=== PATIENT | male | born 1995 | race Caucasian/White ===

== ENCOUNTER 2019-08-09 18:41 | Emergency (ER) | payer OTHER ==
[~2019-08-09] VITALS: Ht 172.7 cm; Wt 74.8 kg
--- NOTE | 2019-08-09 18:50 | NUR ---
patient came in to the er due to neeedle stick on the left ring finger after drawing blood. On room air, breathing evenly and unlabored. Kept comfortable, will continue to monitor accordingly.
--- NOTE | 2019-08-09 19:51 | NUR ---
Patient discharged to home in stable condition. Written and verbal after care instructions given. Patient verbalizes understanding of instruction.
[2019-08-09 19:52] VITALS: BP 129/79
[2019-08-10 12:07] LABS: HIV SCRN 4G wRFX Non Reactive (Non Reactive)
== END 2019-08-09 19:52 | disposition home or self-care (01) ==
LOC: ER 18:45
DX: S61.231A Puncture wound without foreign body of left index finger without damage to nail, initial encounter (principal); W46.0XXA Contact with hypodermic needle, initial encounter; Y93.89 Activity, other specified; Y92.89 Other specified places as the place of occurrence of the external cause; Y99.8 Other external cause status
CPT/HCPCS: 36415; 86706; 86803

== ENCOUNTER 2019-10-23 11:44 | Outpatient (CLI) | payer BC | END 2019-10-23 23:59 | disposition home or self-care (01) | LOC: LAB 11:44 | DX: Z02.1 Encounter for pre-employment examination (principal) | CPT/HCPCS: 36415; 86317; 86803; 87806 ==

== ENCOUNTER 2020-02-16 20:12 | Emergency (ER) | payer BC, OTHER ==
[~2020-02-16] VITALS: Ht 175.3 cm; Wt 74.8 kg
[2020-02-16 20:14] VITALS: BP 132/64
== END 2020-02-16 20:21 | disposition home or self-care (01) ==
LOC: ER 20:19
DX: Z20.828 Contact with and (suspected) exposure to other viral communicable diseases (principal)
CPT/HCPCS: 99283; C9803; U0003